=== PATIENT | female | born 1935 | race Hispanic/Latino ===

== ENCOUNTER 2018-07-21 14:07 | Inpatient (IN) | payer OTHER ==
[~2018-07-21] VITALS: Ht 147.3 cm; Wt 50.9 kg
[2018-07-21] MEDS ORDERED: METHYLPREDNISOLONE SOD SUCC 125MG/2ML VIAL ONE (14:35)
[2018-07-21] MEDS ORDERED: SODIUM CHLORIDE 0.9% 50 ML IV ONE ×2 (14:36→15:52)
[2018-07-21] MEDS ORDERED: CEFTRIAXONE SODIUM 1 GM ONE (14:36)
[2018-07-21] MEDS ORDERED: IPRATROPIUM/ALBUTEROL SULFATE 3 ML SOLUTION IH ONE ×2 (14:37→15:15)
[2018-07-21 14:43] LABS: BASOPHILS % (AUTO) 0.2 % (0.0-5.0); HEMATOCRIT 26.9 % (36-48); MEAN CORPUSCULAR HEMOGLOBIN 26.5 pg (27.0-33.0); MEAN CORPUSCULAR HGB CONC 31.2 g/dL (32.0-36.0); MEAN CORPUSCULAR VOLUME 85.2 fL (79-99); NEUTROPHILS % (AUTO) 79.8 % (40.0-77.0); PLATELET COUNT (AUTO) 240 K/uL (130-400); RED BLOOD CELL COUNT(AUTO) 3.15 MIL/uL (4.00-5.50); RED CELL DISTRIBUTION WIDTH 15.2 % (11.0-15.5); WHITE BLOOD COUNT (AUTO) 20.9 K/uL (4.8-10.8)
[2018-07-21 14:57] LABS: CREATININE 6.7 mg/dL (0.5-1.5); POTASSIUM 4.6 mmol/L (3.5-5.1)
[2018-07-21 15:02] LABS: ALBUMIN 2.8 g/dL (3.5-5.0); BILIRUBIN,TOTAL 0.3 mg/dL (0.2-1.0)
[2018-07-21] MEDS ORDERED: ZOSYN 3.375GM+NS 50ML 50 ML IV ONE (15:51)
[2018-07-21] MEDS ORDERED: AZITHROMYCIN 250 MG TABLET PO ONE (15:52)
[2018-07-21] MEDS ORDERED: SODIUM CHLORIDE 0.9% 1000ML 1,000 ML IV ONE (15:58)
[2018-07-21 16:03] LABS: APPEARANCE,URINE CLOUDY (CLEAR); BILIRUBIN,URINE NEGATIVE (NEGATIVE); COLOR,URINE YELLOW (YELLOW); GLUCOSE, URINE (UA) 250 mg/dL (NEGATIVE); KETONES,URINE NEGATIVE (NEGATIVE); LEUKOCYTE ESTERASE ,URINE NEGATIVE (NEGATIVE); NITRATE,URINE NEGATIVE (NEGATIVE); OCCULT BLOOD,URINE LARGE (NEGATIVE); PROTEIN,URINE >=300 (NEGATIVE); UROBILINOGEN,URINE 0.2 mg/dL (0.2-1.0)
[2018-07-21 16:42] LABS: AMORPHOUS SEDIMENT,UR Moderate /LPF (None Seen); BACTERIA,URINE Few /HPF (None Seen); SQUAMOUS EPITHELIAL CELL,UR Rare /HPF (0-2); WBC,URINE 0-1 /HPF (0-1)
[2018-07-21] MEDS ORDERED: SODIUM CHLORIDE 0.9% 500ML 500 ML IV ONE (16:59)
[2018-07-21] MEDS ORDERED: SODIUM CHLORIDE 0.9% 1000ML 1,000 ML IV SCH (17:29)
[2018-07-21] MEDS: METHYLPREDNISOLONE SOD SUCC 125MG/2ML VIAL IV SCH (17:30)
[2018-07-21] MEDS: IPRATROPIUM/ALBUTEROL SULFATE 3 ML SOLUTION IH SCH (18:14)
[2018-07-21 18:28] LABS: PROTEIN,URINE RANDOM 492.4 mg/dL (0-11.9)
[2018-07-21 19:03] VITALS: BP 159/100
[2018-07-21 19:43] LABS: INR 0.97 (0.85-1.15); PROTHROMBIN TIME 10.2 SEC (9.6-11.6)
[2018-07-21] MEDS: CEFEPIME HCL 2 GM VIAL IVP SCH (20:33)
[2018-07-21] MEDS: BUDESONIDE 0.5 MG/2 ML INH IH SCH (21:27)
[2018-07-21] MEDS ORDERED: MORPHINE SULFATE 2 MG/ML 1ML SYG ONE (21:42)
[2018-07-21 21:51] LABS: ABG BASE EXCESS -9.7 mmol/L (-2.0-3.0); ABG HCO3 15.2 mmol/L (21.0-28.0); ABG OXYGEN SATURATION 99.6 % (95.0-99.0); ABG PCO2 31 mmHg (32-45)
[2018-07-21 23:53] VITALS: BP 133/109
[2018-07-22] MEDS: IPRATROPIUM/ALBUTEROL SULFATE 3 ML SOLUTION IH SCH ×5 (00:39→18:03)
[2018-07-22] MEDS: METHYLPREDNISOLONE SOD SUCC 125MG/2ML VIAL IV SCH ×3 (00:51→17:21)
[2018-07-22] MEDS ORDERED: BENZ-39 PO (03:16)
[2018-07-22] MEDS ORDERED: MV,1TABL8 PO (03:16)
[2018-07-22] MEDS ORDERED: LORA-868 PO (03:16)
[2018-07-22] MEDS ORDERED: METO-408 PO (03:16)
[2018-07-22] MEDS ORDERED: ASPI-1181 PO (03:16)
[2018-07-22] MEDS ORDERED: MONT10TA24 PO (03:16)
[2018-07-22] MEDS ORDERED: ATOR40TA71 PO (03:16)
[2018-07-22] MEDS ORDERED: PIRF267T PO (03:16)
[2018-07-22] MEDS ORDERED: AMLO10TA6 PO (03:16)
[2018-07-22 03:44] LABS: BASOPHILS % (AUTO) 0.2 % (0.0-5.0); HEMATOCRIT 21.5 % (36-48); LYMPHOCYTES % (AUTO) 6.4 % (21.0-51.0); MEAN CORPUSCULAR HEMOGLOBIN 27.8 pg (27.0-33.0); MEAN CORPUSCULAR HGB CONC 32.9 g/dL (32.0-36.0); MEAN CORPUSCULAR VOLUME 84.5 fL (79-99); MONOCYTES % (AUTO) 8.2 % (3.0-13.0); NEUTROPHILS % (AUTO) 85.2 % (40.0-77.0); PLATELET COUNT (AUTO) 219 K/uL (130-400); RED BLOOD CELL COUNT(AUTO) 2.54 MIL/uL (4.00-5.50); RED CELL DISTRIBUTION WIDTH 15.3 % (11.0-15.5); WHITE BLOOD COUNT (AUTO) 20.2 K/uL (4.8-10.8)
[2018-07-22 03:54] VITALS: BP 153/67
[2018-07-22 03:56] LABS: ALBUMIN 2.3 g/dL (3.5-5.0); BILIRUBIN,TOTAL 0.3 mg/dL (0.2-1.0); CREATININE 6.1 mg/dL (0.5-1.5); MAGNESIUM 1.7 mg/dL (1.80-2.40); PHOSPHORUS 3.5 mg/dL (2.5-4.9); POTASSIUM 4.3 mmol/L (3.5-5.1); TOTAL PROTEIN, SERUM 7.1 g/dL (6.0-8.3); URIC ACID 5.8 mg/dL (2.6-7.2)
[2018-07-22 04:06] LABS: % IRON SATURATION 4.3 % (22-44)
[2018-07-22 04:09] LABS: ABG BASE EXCESS -5.7 mmol/L (-2.0-3.0); ABG HCO3 19.1 mmol/L (21.0-28.0); ABG OXYGEN SATURATION 98.7 % (95.0-99.0); ABG PCO2 36 mmHg (32-45)
[2018-07-22] MEDS: INSULIN LISPRO 100 UNIT/ML 3ML SQ SCH ×4 (06:05→21:00)
[2018-07-22] MEDS: CEFEPIME HCL 2 GM VIAL IVP SCH ×2 (06:29→17:18)
[2018-07-22] MEDS: BUDESONIDE 0.5 MG/2 ML INH IH SCH ×2 (06:47→18:03)
[2018-07-22 08:13] VITALS: BP 144/73
[2018-07-22] MEDS ORDERED: ENOXAPARIN SODIUM 40 MG/0.4 ML SYRINGE SQ SCH (09:00)
[2018-07-22] MEDS: SODIUM CHLORIDE 0.9% 1000ML 1,000 ML IV SCH (09:04)
[2018-07-22] MEDS: PANTOPRAZOLE SODIUM 40 MG TABLET.DR PO SCH (09:05)
[2018-07-22] MEDS ORDERED: COMPOUND IV MISC 1 EACH IVSOLN MISC PRN (10:30)
[2018-07-22] MEDS: IRON SUCROSE COMPLEX 100 MG in SODIUM CHLORIDE 0.9% 50 ML IV SCH (10:43)
[2018-07-22] MEDS: DOXYCYCLINE 100MG+NS 250ML 250 ML IV SCH (11:14)
[2018-07-22 11:48] VITALS: BP 152/62
[2018-07-22 16:33] VITALS: BP 131/87
[2018-07-22] MEDS: MORPHINE SULFATE 2 MG/ML 1ML SYG IM PRN (17:17)
[2018-07-22 19:27] VITALS: BP 152/96
[2018-07-22 23:45] VITALS: BP 139/81
[2018-07-23] MEDS: DOXYCYCLINE 100MG+NS 250ML 250 ML IV SCH ×3 (00:18→21:15)
[2018-07-23] MEDS: IPRATROPIUM/ALBUTEROL SULFATE 3 ML SOLUTION IH SCH ×5 (00:47→23:34)
[2018-07-23] MEDS: MORPHINE SULFATE 2 MG/ML 1ML SYG IM PRN ×2 (01:58→05:54)
[2018-07-23] MEDS: METHYLPREDNISOLONE SOD SUCC 125MG/2ML VIAL IV SCH ×3 (02:00→17:20)
[2018-07-23 03:39] VITALS: BP 143/58
[2018-07-23 04:11] LABS: MEAN CORPUSCULAR HEMOGLOBIN 27.2 pg (27.0-33.0); MEAN CORPUSCULAR HGB CONC 31.7 g/dL (32.0-36.0); PLATELET COUNT (AUTO) 216 K/uL (130-400); RED BLOOD CELL COUNT(AUTO) 2.41 MIL/uL (4.00-5.50); RED CELL DISTRIBUTION WIDTH 15.4 % (11.0-15.5); WHITE BLOOD COUNT (AUTO) 21.1 K/uL (4.8-10.8)
[2018-07-23 04:26] LABS: ALBUMIN 2.3 g/dL (3.5-5.0); BILIRUBIN,TOTAL 0.3 mg/dL (0.2-1.0); MAGNESIUM 1.8 mg/dL (1.80-2.40); POTASSIUM 4.4 mmol/L (3.5-5.1); TOTAL PROTEIN, SERUM 7.1 g/dL (6.0-8.3)
[2018-07-23 04:34] LABS: HEMATOCRIT 20.7 % (36-48)
[2018-07-23 04:59] LABS: B-TYPE NATRIURETIC PEPTIDE 367 pg/mL (0-100)
[2018-07-23] MEDS: CEFEPIME HCL 2 GM VIAL IVP SCH ×2 (05:32→17:21)
[2018-07-23] MEDS: SODIUM CHLORIDE 0.9% 1000ML 1,000 ML IV SCH (05:41)
[2018-07-23] MEDS: INSULIN LISPRO 100 UNIT/ML 3ML SQ SCH ×4 (05:49→21:00)
[2018-07-23] MEDS ORDERED: SODIUM CHLORIDE 3% FOR INHALATION 4 ML/AMP VIAL.NEB IH ONE ×2 (06:01→17:45)
[2018-07-23] MEDS: BUDESONIDE 0.5 MG/2 ML INH IH SCH ×2 (06:07→18:16)
[2018-07-23] MEDS ORDERED: LORAZEPAM 2 MG/ML 1 ML VIAL ONE (06:23)
[2018-07-23] MEDS: LORAZEPAM 2 MG/ML 1 ML VIAL IVP PRN ×7 (06:39→23:42)
[2018-07-23 07:26] VITALS: BP 120/63
[2018-07-23] MEDS: FOLIC ACID/VITAMIN B COMP W-C 1 MG CAPSULE PO SCH (09:00)
[2018-07-23] MEDS: PANTOPRAZOLE SODIUM 40 MG TABLET.DR PO SCH (09:00)
[2018-07-23] MEDS ORDERED: SODIUM CHLORIDE 0.9% 500ML 500 ML IV ONE (09:05)
[2018-07-23] MEDS ORDERED: FUROSEMIDE 10 MG/ML 4ML VIAL IV SCH (09:30)
[2018-07-23 11:59] VITALS: BP 130/63
[2018-07-23] MEDS: IRON SUCROSE COMPLEX 100 MG in SODIUM CHLORIDE 0.9% 50 ML IV SCH (14:44)
[2018-07-23] MEDS: FUROSEMIDE 10 MG/ML 4ML VIAL IV SCH (14:45)
[2018-07-23 16:28] VITALS: BP 143/62
[2018-07-23] MEDS ORDERED: SODIUM CHLORIDE 0.9% 10 ML VIAL ONE (17:02)
[2018-07-23 17:45] LABS: HEMATOCRIT 27.1 % (36-48)
[2018-07-23 23:43] VITALS: BP 139/74
[2018-07-24] MEDS: FUROSEMIDE 10 MG/ML 4ML VIAL IV SCH ×2 (01:40→13:15)
[2018-07-24] MEDS: METHYLPREDNISOLONE SOD SUCC 125MG/2ML VIAL IV SCH ×3 (01:40→16:58)
[2018-07-24] MEDS: LORAZEPAM 2 MG/ML 1 ML VIAL IVP PRN ×7 (02:02→22:15)
[2018-07-24 03:45] VITALS: BP 127/55
[2018-07-24 03:46] LABS: HEMATOCRIT 24.8 % (36-48); MEAN CORPUSCULAR HEMOGLOBIN 28.2 pg (27.0-33.0); MEAN CORPUSCULAR HGB CONC 32.7 g/dL (32.0-36.0); MEAN CORPUSCULAR VOLUME 86.5 fL (79-99); PLATELET COUNT (AUTO) 227 K/uL (130-400); RED BLOOD CELL COUNT(AUTO) 2.87 MIL/uL (4.00-5.50); RED CELL DISTRIBUTION WIDTH 14.7 % (11.0-15.5); WHITE BLOOD COUNT (AUTO) 20.3 K/uL (4.8-10.8)
[2018-07-24 04:04] LABS: ALBUMIN 2.3 g/dL (3.5-5.0); BILIRUBIN,TOTAL 0.3 mg/dL (0.2-1.0); CREATININE 7.2 mg/dL (0.5-1.5); POTASSIUM 5.1 mmol/L (3.5-5.1)
[2018-07-24 04:59] LABS: B-TYPE NATRIURETIC PEPTIDE 647 pg/mL (0-100)
[2018-07-24] MEDS ORDERED: CEFEPIME HCL 1 GM VIAL ONE (04:59)
[2018-07-24] MEDS: CEFEPIME HCL 2 GM VIAL IVP SCH ×2 (05:16→16:58)
[2018-07-24] MEDS: INSULIN LISPRO 100 UNIT/ML 3ML SQ SCH ×4 (05:45→20:16)
[2018-07-24] MEDS: IPRATROPIUM/ALBUTEROL SULFATE 3 ML SOLUTION IH SCH ×2 (06:11→18:00)
[2018-07-24] MEDS: BUDESONIDE 0.5 MG/2 ML INH IH SCH ×2 (06:26→18:58)
[2018-07-24 07:34] VITALS: BP 129/61
[2018-07-24 08:10] LABS: HEPATITIS Bs ANTIGEN SCREEN P Negative (Negative)
[2018-07-24] MEDS: FOLIC ACID/VITAMIN B COMP W-C 1 MG CAPSULE PO SCH (09:00)
[2018-07-24] MEDS: ENOXAPARIN SODIUM 30 MG/0.3 ML SQ SCH (09:00)
[2018-07-24] MEDS: IRON SUCROSE COMPLEX 100 MG in SODIUM CHLORIDE 0.9% 50 ML IV SCH (09:00)
[2018-07-24] MEDS: PANTOPRAZOLE SODIUM 40 MG TABLET.DR PO SCH (09:00)
[2018-07-24] MEDS: MORPHINE SULFATE 2 MG/ML 1ML SYG IM PRN ×2 (09:52→11:34)
[2018-07-24] MEDS: DOXYCYCLINE 100MG+NS 250ML 250 ML IV SCH ×2 (09:57→20:16)
[2018-07-24] MEDS: MORPHINE SULFATE 2 MG/ML 1ML SYG IV SCH ×2 (13:21→16:15)
[2018-07-24] MEDS ORDERED: MORPHINE SULFATE 4 MG/1ML SYG ONE (16:07)
[2018-07-24] MEDS: MORPHINE SULFATE 4 MG/1ML SYG IV SCH ×3 (20:15→23:51)
[2018-07-25] MEDS: IPRATROPIUM/ALBUTEROL SULFATE 3 ML SOLUTION IH SCH ×3 (00:44→11:22)
[2018-07-25] MEDS: FUROSEMIDE 10 MG/ML 4ML VIAL IV SCH ×2 (01:15→12:52)
[2018-07-25] MEDS: METHYLPREDNISOLONE SOD SUCC 125MG/2ML VIAL IV SCH ×2 (01:30→09:30)
[2018-07-25] MEDS: LORAZEPAM 2 MG/ML 1 ML VIAL IVP PRN ×4 (02:45→14:00)
[2018-07-25] MEDS: MORPHINE SULFATE 4 MG/1ML SYG IV SCH ×5 (02:46→14:01)
[2018-07-25] MEDS: CEFEPIME HCL 2 GM VIAL IVP SCH (04:56)
[2018-07-25] MEDS: BUDESONIDE 0.5 MG/2 ML INH IH SCH (07:09)
[2018-07-25] MEDS: INSULIN LISPRO 100 UNIT/ML 3ML SQ SCH ×2 (07:30→11:30)
[2018-07-25] MEDS: ENOXAPARIN SODIUM 30 MG/0.3 ML SQ SCH (09:00)
[2018-07-25] MEDS: PANTOPRAZOLE SODIUM 40 MG TABLET.DR PO SCH (09:00)
[2018-07-25] MEDS: FOLIC ACID/VITAMIN B COMP W-C 1 MG CAPSULE PO SCH (09:00)
[2018-07-25] MEDS: IRON SUCROSE COMPLEX 100 MG in SODIUM CHLORIDE 0.9% 50 ML IV SCH (09:00)
[2018-07-25] MEDS: DOXYCYCLINE 100MG+NS 250ML 250 ML IV SCH (10:15)
== END 2018-07-25 09:51 | disposition hospice, inpatient (51) | DRG 871 ==
LOC: EDH 14:07 → EDHIP 16:30 → 2AH 18:28 → 3DH 07-24 13:30 → UNDODISIN 07-25 11:59
PROVIDERS: ADMIT Internal Medicine; ATTEND Internal Medicine
PROC: 5A09357 Assistance with Respiratory Ventilation, Less than 24 Consecutive Hours, Continuous Positive Airway Pressure (ICD-10-PCS; 2018-07-21)
PROC: 30233N1 Transfusion of Nonautologous Red Blood Cells into Peripheral Vein, Percutaneous Approach (ICD-10-PCS; principal; 2018-07-23)
PROC: 5A09357 Assistance with Respiratory Ventilation, Less than 24 Consecutive Hours, Continuous Positive Airway Pressure (ICD-10-PCS; 2018-07-23)
PROC: 5A09357 Assistance with Respiratory Ventilation, Less than 24 Consecutive Hours, Continuous Positive Airway Pressure (ICD-10-PCS; 2018-07-24)
PROC: 5A09357 Assistance with Respiratory Ventilation, Less than 24 Consecutive Hours, Continuous Positive Airway Pressure (ICD-10-PCS; 2018-07-25)
DX: A41.9 Sepsis, unspecified organism (principal); J96.21 Acute and chronic respiratory failure with hypoxia; J18.9 Pneumonia, unspecified organism; E43 Unspecified severe protein-calorie malnutrition; N18.6 End stage renal disease; N17.0 Acute kidney failure with tubular necrosis; J44.0 Chronic obstructive pulmonary disease with (acute) lower respiratory infection; N17.9 Acute kidney failure, unspecified; R64 Cachexia; I12.0 Hypertensive chronic kidney disease with stage 5 chronic kidney disease or end stage renal disease; J44.1 Chronic obstructive pulmonary disease with (acute) exacerbation; G93.40 Encephalopathy, unspecified; J84.10 Pulmonary fibrosis, unspecified; E11.9 Type 2 diabetes mellitus without complications; I10 Essential (primary) hypertension; Z99.81 Dependence on supplemental oxygen; E11.21 Type 2 diabetes mellitus with diabetic nephropathy; E11.22 Type 2 diabetes mellitus with diabetic chronic kidney disease; E78.5 Hyperlipidemia, unspecified; D50.9 Iron deficiency anemia, unspecified; Z66 Do not resuscitate; F41.9 Anxiety disorder, unspecified; E87.70 Fluid overload, unspecified; Z51.5 Encounter for palliative care; R62.7 Adult failure to thrive; Z68.23 Body mass index [BMI] 23.0-23.9, adult
CPT/HCPCS: 36415; 36430; 36600; 71045; 76770; 80053; 81001; 82570; 82728; 82803; 82948; 83540; 83550; 83605; 83735; 83880; 84100; 84156; 84300; 84484; 84550; 85014; 85018; 85025; 85027; 85610; 85730; 86038; 86160; 86215; 86235; 86850; 86900; 86901; 86922; 87040; 87071; 87077; 87088; 87186; 87205; 87340; 87520; 87804; 93005; 93306; 94640; 94660; 94664; A4218; A4344; J0692; J0696; J1650; J1756; J1940; J2060; J2270; J2543; J2930; J3490; J7030; J7040; P9016

== ENCOUNTER 2018-07-25 09:52 | Inpatient (IN) | payer OTHER ==
[~2018-07-25] VITALS: Ht 147.3 cm; Wt 50.9 kg
[~2018-07-25 09:52] MED LIST: AMLO10TA6 PO; ASPI-1181 PO; ATOR40TA71 PO; BENZ-39 PO; LORA-868 PO; METO-408 PO; MONT10TA24 PO; MV,1TABL8 PO; PIRF267T PO
[2018-07-25] MEDS ORDERED: HALOPERIDOL LACTATE 5 MG/ML VIAL IV PRN (15:00)
[2018-07-25] MEDS ORDERED: BISACODYL 10 MG SUPP.RECT RC PRN (15:00)
[2018-07-25] MEDS ORDERED: ACETAMINOPHEN 650 MG SUPPOSITORY RC PRN (15:00)
[2018-07-25] MEDS ORDERED: LORAZEPAM 2 MG/ML 1 ML VIAL IVP PRN (15:00)
[2018-07-25] MEDS ORDERED: ONDANSETRON HCL 4 MG/2 ML VIAL IVP PRN (15:00)
[2018-07-25] MEDS ORDERED: HYDROMORPHONE 1 MG/1 ML AMP ONE (15:02)
[2018-07-25] MEDS ORDERED: FUROSEMIDE 10 MG/ML 4ML VIAL IVP SCH (15:15)
[2018-07-25] MEDS ORDERED: GLYCOPYRROLATE 1 MG/5 ML SYRINGE IV PRN (15:15)
[2018-07-25] MEDS ORDERED: METHYLPREDNISOLONE SOD SUCC 40MG/ML 1ML IVP SCH (16:00)
[2018-07-25] MEDS: HYDROMORPHONE 1 MG/1 ML AMP IVP PRN ×2 (17:11→18:11)
[2018-07-25] MEDS ORDERED: BUDESONIDE 0.5 MG/2 ML INH IH SCH (18:00)
[2018-07-25] MEDS ORDERED: IPRATROPIUM/ALBUTEROL SULFATE 3 ML SOLUTION IH SCH (18:00)
[2018-07-25] MEDS ORDERED: HYDROMORPHONE PCA 10 MG/50 ML 50 ML IV PRN (19:30)
== END 2018-07-25 20:06 | disposition expired | DRG 682 ==
LOC: 3DH 09:52
PROVIDERS: ADMIT Internal Medicine; ATTEND Internal Medicine
PROC: 5A09357 Assistance with Respiratory Ventilation, Less than 24 Consecutive Hours, Continuous Positive Airway Pressure (ICD-10-PCS; principal; 2018-07-25)
DX: N17.9 Acute kidney failure, unspecified (principal); J96.21 Acute and chronic respiratory failure with hypoxia; J18.9 Pneumonia, unspecified organism; J44.1 Chronic obstructive pulmonary disease with (acute) exacerbation; Z51.5 Encounter for palliative care; Z66 Do not resuscitate; I10 Essential (primary) hypertension; E78.5 Hyperlipidemia, unspecified; D64.9 Anemia, unspecified; J84.10 Pulmonary fibrosis, unspecified; E11.21 Type 2 diabetes mellitus with diabetic nephropathy
CPT/HCPCS: J1170; J2060